=== PATIENT | female | born 1955 | race Caucasian/White ===

== ENCOUNTER 2017-10-27 13:23 | Emergency (ER) | payer OTHER ==
--- NOTE | 2017-10-27 15:10 | EDPHY ---
H & P Stated Complaint: high BP Time Seen by Provider: 10/27/17 14:51 HPI/ROS: CHIEF COMPLAINT: Elevated blood pressure HISTORY OF PRESENT ILLNESS: 62-year-old female with hypertension presents with elevated blood pressure. She was previously on an unknown antihypertensive, but stopped the medication after losing weight. She is not taking antihypertensive medication now. She went to urgent care just prior to arrival and her blood pressure was 200/110. She has had intermittent headaches over the past few weeks. Unclear if this is related to chronic headaches or to elevated blood pressure. She is on disability for chronic headaches. She ran out of her Topamax and her thyroid medications as well. She was sent here for further evaluation. REVIEW OF SYSTEMS: complete 10 point ROS negative except at noted in the HPI - Personal History Current Tetanus/Diphtheria Vaccine: Yes Current Tetanus Diphtheria and Acellular Pertussis (TDAP): Yes - Medical/Surgical History PMH: Tachycardia, usual heart rate 110-120 Hx Asthma: No Hx Chronic Respiratory Disease: No Hx Diabetes: No Hx Cardiac Disease: No Hx Renal Disease: No Hx Cirrhosis: No Hx Alcoholism: No Hx HIV/AIDS: No Hx Splenectomy or Spleen Trauma: No Other PMH: hypothyroid, HTN, migraines, - Family History Significant Family History: Hypertension - Social History Smoking Status: Never smoked Drug Use: None Additional Social History: Lives in [place], on disability - Physical Exam Exam: General Appearance: Alert, pleasant, does not appear in pain Eyes: Pupils equal and round, no conjunctival pallor ENT, Mouth: Mucous membranes moist Neck: Normal inspection Respiratory: Lungs are clear to auscultation Cardiovascular: Regular tachycardia Gastrointestinal: Abdomen is soft and nontender Neurological: A&O, nonfocal, normal gait Skin: Warm and dry, no rash Extremities: Nontender, no pedal edema Psychiatric: Mood and affect normal Constitutional: Initial Vital Signs Temperature (C) 37 C 10/27/17 13:31 Heart Rate 133 H 10/27/17 13:31 Respiratory Rate 16 10/27/17 13:31 Blood Pressure 185/102 H 10/27/17 13:31 O2 Sat (%) 94 10/27/17 13:31 O2 Delivery Mode Room Air Allergies/Adverse Reactions: codeine Allergy (Verified 10/27/17 13:30) Home Medications: Medication Instructions Recorded Acet/Caffeine/Buta Fioricet 1 each PO Q6 PRN #15 tab 10/27/17 [Fioricet (*)] FLUoxetine [Prozac 20 MG (*)] 40 10/27/17 Levothyroxine 100 mcg 10/27/17 Levothyroxine [Synthroid 100 mcg 100 mcg PO DAILY #30 tab 10/27/17 (*)] Lisinopril-Hctz 10-12.5 mg Tab 10/27/17 Lisinopril/Hydrochlorothiazide 1 each PO DAILY #30 tablet 10/27/17 [Lisinopril-Hctz 10-12.5 mg Tab] Triamterene-Hctz 37.5-25 mg Tb 10/27/17 Medical Decision Making - Diagnostics EKG Interpretation: EKG interpreted by me reveals sinus tachycardia, rate 115, right bundle branch block ED Course/Re-evaluation: This patient presents with elevated blood pressure secondary to discontinuation of her antihypertensive medication. She will call her pharmacy in [place] to determine which medication she takes. She also has a typical TA. Requests Fioricet. Repeat BP 142/84, HR 88. Laboratory tests and EKG are unremarkable. No indication for emergent BP control. Prescriptions for Lisinopril/Hctz, Fioricet and levothyroxine given. Patient will call Dr. MCCLENDON to establish a primary care physician. Differential Diagnosis: Includes though is not limited to hypertensive emergency, intracranial hemorrhage, acute coronary syndrome, acute renal failure. - Data Points Laboratory Results: Laboratory Results 10/27/17 15:24 10/27/17 15:24 10/27/17 10/27/17 15:24 15:24 WBC 14.19 10^3/uL H 10^3/uL (3.80-9.50) RBC 5.56 10^6/uL H 10^6/uL (4.18-5.33) Hgb 16.5 g/dL H g/dL (12.6-16.3) Hct 49.3 % H % (38.0-47.0) MCV 88.7 fL fL (81.5-99.8) MCH 29.7 pg pg (27.9-34.1) MCHC 33.5 g/dL g/dL (32.4-36.7) RDW 12.8 % % (11.5-15.2) Plt Count 418 10^3/uL H 10^3/uL (150-400) MPV 10.2 fL fL (8.7-11.7) Neut % (Auto) 73.7 % % (39.3-74.2) Lymph % (Auto) 18.5 % % (15.0-45.0) [place] % (Auto) 6.7 % % (4.5-13.0) Eos % (Auto) 0.3 % L % (0.6-7.6) Baso % (Auto) 0.4 % % (0.3-1.7) Nucleat RBC Rel Count 0.0 % % (0.0-0.2) Absolute Neuts (auto) 10.47 10^3/uL H 10^3/uL (1.70-6.50) Absolute Lymphs (auto) 2.62 10^3/uL 10^3/uL (1.00-3.00) Absolute Monos (auto) 0.95 10^3/uL H 10^3/uL (0.30-0.80) Absolute Eos (auto) 0.04 10^3/uL 10^3/uL (0.03-0.40) Absolute Basos (auto) 0.06 10^3/uL 10^3/uL (0.02-0.10) Absolute Nucleated RBC 0.00 10^3/uL 10^3/uL (0-0.01) Immature Gran % 0.4 % % (0.0-1.1) Immature Gran # 0.05 10^3/uL 10^3/uL (0.00-0.10) Sodium 142 mEq/L mEq/L (135-145) Potassium 4.2 mEq/L mEq/L (3.5-5.2) Chloride 104 mEq/L mEq/L (97-110) Carbon Dioxide 20 mEq/l L mEq/l (22-31) Anion Gap 18 mEq/L H mEq/L (8-16) BUN 18 mg/dL mg/dL (7-23) Creatinine 0.8 mg/dL mg/dL (0.6-1.0) Estimated GFR > 60 Glucose 104 mg/dL H mg/dL (70-100) Calcium 10.7 mg/dL H mg/dL (8.5-10.4) Phosphorus 3.4 mg/dL mg/dL (2.5-4.5) TSH 11.600 uIU/mL H uIU/mL (0.465-4.680) Medications Given: Discontinued Medications Acetaminophen/Butalbital/Caffeine (Fioricet) 1 each PO EDNOW ONE Stop: 10/27/17 17:13 Last Admin: 10/27/17 17:55 Dose: 1 each Sodium Chloride (Ns) 1,000 mls @ 0 mls/hr IV EDNOW ONE; Wide Open PRN Reason: Protocol Stop: 10/27/17 15:13 Last Admin: 10/27/17 15:56 Dose: 1,000 mls Departure - Departure Disposition: Home, Routine, Self-Care Clinical Impression: Hypertension Qualifiers: Hypertension type: essential hypertension Qualified Code(s): I10 - Essential ( primary) hypertension Condition: Good Instructions: Hypertension (ED) Referrals: Govind Cordon DO [Doctor of Osteopathy] - As per Instructions (Call to make an appointment.) Prescriptions: Acet/Caffeine/Buta Fioricet [Fioricet (*)] 1 each PO Q6 PRN #15 tab PRN Reason: Headache Levothyroxine [Synthroid 100 mcg (*)] 100 mcg PO DAILY #30 tab Lisinopril/Hydrochlorothiazide [Lisinopril-Hctz 10-12.5 mg Tab] 1 each PO DAILY #30 tablet
[2017-10-27] MEDS ORDERED: NS 1,000 ML IV ONE (15:12)
[2017-10-27 15:31] LABS: PLATELET COUNT 418 10^3/uL (150-400)
--- NOTE | 2017-10-27 15:37 | CPEKG ---
Heart Rate: 115 RR Interval: 522 P-R Interval: 136 QRSD Interval: 128 QT Interval: 352 QTC Interval: 487 P Harwood: 69 QRS Harwood: 149 T Wave Harwood: 39 EKG Severity - ABNORMAL ECG - EKG Impression: SINUS TACHYCARDIA EKG Impression: RBBB AND LPFB EKG Impression: INFERIOR INFARCT, AGE INDETERMINATE EKG Impression: ANTERIOR INFARCT, AGE INDETERMINATE Electronically Signed By: Breanna Purvis 27-Oct-2017 21:26:48
[2017-10-27] MEDS ORDERED: ACET/CAFFEINE/BUTA FIORICET 1 EACH TAB PO ONE (17:12)
[2017-10-27 17:54] VITALS: BP 142/84
== END 2017-10-27 18:04 | disposition home or self-care (01) ==
DX: I10 Essential (primary) hypertension (principal); E86.9 Volume depletion, unspecified

== ENCOUNTER 2018-03-29 11:24 | Emergency (ER) | payer OTHER ==
[2018-03-29] MEDS ORDERED: PROMETHAZINE HCL 25 MG/ML INJ IVP ONE ×2 (12:51→13:53)
[2018-03-29] MEDS ORDERED: DEXAMETHASONE 10 MG/ML VIAL IVP ONE (12:51)
[2018-03-29] MEDS ORDERED: KETOROLAC 30 MG/1 ML SDV IVP ONE ×2 (12:51→13:52)
[2018-03-29] MEDS ORDERED: DEXAMETHASONE 4 MG/ML VIAL ONE (12:53)
--- NOTE | 2018-03-29 13:05 | EDPHY ---
H & P Time Seen by Provider: 03/29/18 12:41 HPI/ROS: CHIEF COMPLAINT: Headache HISTORY OF PRESENT ILLNESS: Patient is had migraine headaches for many years, since she was 33 years old. She moved from [place] within the last [address] Robin Fuentes. She has had her typical migraine since last night which was not thunderclap in onset or worst of life. It is frontal, light bothers her eyes, associated with nausea and worse with certain smells. Identical to previous migraines but she has never had to come to the emergency department in [place] for therapy. Symptoms severe. Headache does not radiate. No recent injury or head trauma. No neck pain. REVIEW OF SYSTEMS: Eye: Photophobia ENT: no sore throat, no ear or dental symptoms Cardiac: no chest pain or syncope Pulmonary: no cough or SOB Abdomen: no vomiting, diarrhea, abdominal pain Musculoskeletal: no back pain Skin: no rash Neuro: HPI Constitutional: no fever : no urinary symptoms A comprehensive 10 point review of systems is otherwise negative aside from elements mentioned in the history of present illness. PAST MEDICAL HISTORY: Includes migraine headaches, hypothyroid, hypertension Social history: Neurologist is Dr. Robin Fuentes General Appearance: Alert and conversant, cooperative. Eyes: No scleral icterus. Pupils equal reactive extraocular motions intact no proptosis. ENT, Mouth: Normal mucous membranes. Normal tympanic membranes, no facial swelling. Respiratory: Normal respiratory effort, breath sounds equal, lungs are clear to auscultation. Cardiovascular: Regular rate and rhythm. Gastrointestinal: Abdomen is soft and non tender. Neurological: Alert, face symmetric, normal motor and sensory in extremities. Speech fluent, normal [id number] bilaterally. Skin: Warm and dry, no rashes. Musculoskeletal: No neck stiffness. Psychiatric: Not agitated. Emergency Department course/MDM: Toradol 15, Phenergan 12.5, dexamethasone 10, 1 L IV normal saline, Benadryl 25. Does not have high risk features to suggest she has alternative diagnosis such as intracranial mass or bleed, [employer] infection, subarachnoid, venous thrombosis, ENT infection. 1353: Still having headache, re-medicated. 1520: Says she feels a lot better, ready to go home, I think that is reasonable. Smoking Status: Never smoked Constitutional: Initial Vital Signs Temperature (C) 36.6 C 10/10/18 11:24 Heart Rate 110 H 03/29/18 11:24 Respiratory Rate 18 03/29/18 11:24 Blood Pressure 158/108 H 03/29/18 11:24 O2 Sat (%) 96 03/29/18 11:24 O2 Delivery Mode Room Air Allergies/Adverse Reactions: codeine Allergy (Verified 01/07/18 14:56) Other-Enter Comments Home Medications: Medication Instructions Recorded Acet/Caffeine/Buta Fioricet 1 each PO Q6 PRN 01/07/18 [Fioricet (*)] Calcium Carbonate/Vitamin D3 1 each PO DAILY 01/07/18 [Calcium 600 + Vit D 400 Softgl] FLUoxetine HCL [Fluoxetine HCl] 40 mg PO DAILY 01/07/18 FLUoxetine [Prozac 20 MG (*)] 20 mg PO DAILY 01/07/18 Levothyroxine [Synthroid 112 mcg 112 mcg PO DAILY06 01/07/18 (*)] Pravastatin Sodium 40 mg PO HS 01/07/18 Sumatriptan Succinate 100 mg PO ONCE PRN 01/07/18 Acetaminophen [Tylenol 325mg (*)] 650 mg PO Q4HRS PRN tab 01/09/18 Ondansetron Odt [Zofran Odt 4 mg 4 mg PO Q4HRS PRN #30 tab 01/09/18 (*)] Medical Decision Making Differential Diagnosis: Differential diagnosis considered for headache including but not limited to subarachnoid hemorrhage, migraine headache, tension headache and infectious causes such as meningitis, pharyngitis and sinusitis. - Data Points Medications Given: Discontinued Medications Dexamethasone (Decadron Injection) 10 mg IVP EDNOW ONE Stop: 03/29/18 12:52 Last Admin: 03/29/18 12:59 Dose: 10 mg Diphenhydramine HCl (Benadryl Injection) 25 mg IVP EDNOW ONE Stop: 03/29/18 12:52 Last Admin: 03/29/18 13:00 Dose: 25 mg Sodium Chloride (Ns) 1,000 mls @ 6,000 mls/hr IV ONCE ONE Stop: 03/29/18 15:52 Last Admin: 03/29/18 13:44 Dose: 2,000 mls Ketorolac Tromethamine (Toradol) 15 mg IVP EDNOW ONE Stop: 03/29/18 12:52 Last Admin: 03/29/18 12:57 Dose: 15 mg Ketorolac Tromethamine (Toradol) 15 mg IVP EDNOW ONE Stop: 03/29/18 13:53 Last Admin: 03/29/18 14:28 Dose: 15 mg Promethazine HCl (Phenergan) 12.5 mg IVP EDNOW ONE Stop: 03/29/18 12:52 Last Admin: 03/29/18 13:01 Dose: 12.5 mg Promethazine HCl (Phenergan) 12.5 mg IVP EDNOW ONE Stop: 03/29/18 13:54 Last Admin: 03/29/18 14:28 Dose: 12.5 mg Departure - Departure Disposition: Home, Routine, Self-Care Clinical Impression: Migraine headache Qualifiers: Migraine type: unspecified Status migrainosus presence: without status migrainosus Intractability: not intractable Qualified Code(s): G43.909 - Migraine, unspecified, not intractable, without status migrainosus Condition: Good Instructions: Migraine Headache (ED) Referrals: Robin Fuentes MD [Medical Doctor] - As per Instructions
[2018-03-29 15:42] VITALS: BP 120/82
[2018-03-29] MEDS ORDERED: NS 1,000 ML IV ONE (15:43)
== END 2018-03-29 15:44 | disposition home or self-care (01) ==
DX: G43.909 Migraine, unspecified, not intractable, without status migrainosus (principal); E03.9 Hypothyroidism, unspecified; I10 Essential (primary) hypertension
CPT/HCPCS: 96374; 96375; 96376; 99284; J1100; J1200; J1885; J2550